=== PATIENT | female | born 1965 | race Caucasian/White ===

== ENCOUNTER → 2020-03-10 | Outpatient (CLI) | payer BC ==
--- NOTE | 2020-03-10 18:35 | RAD ---
EXAM DESCRIPTION: Chest,2 Views CLINICAL HISTORY: Chest pain COMPARISON: Chest radiograph dated June 12, 2013 TECHNIQUE: Two-view radiograph of the chest FINDINGS: Cardiac silhouette shows normal heart size. Pulmonary vascularity is within normal limits. Lungs show no confluent infiltrates. No pleural effusion. No pneumothorax. Degenerative changes of the thoracic spine. IMPRESSION: No acute cardiopulmonary process. Electronically signed by: Nate Garza MD 03/10/2020 6:33 PM DIRECT CARE PROFESSIONAL
== END ==
LOC: LAB.O 17:41
PROVIDERS: ATTEND Nurse Practitioner Family
DX: R07.89 Other chest pain (principal)